=== PATIENT | male | born 1995 | race Two or more races ===

== ENCOUNTER 2017-07-06 13:23 | Emergency (ER) | payer MEDICAID ==
[~2017-07-06] VITALS: Ht 177.8 cm; Wt 76.7 kg
[2017-07-06 13:26] VITALS: BP 129/84
[2017-07-06] MEDS ORDERED: TOBREX3.5 GM OP (13:56)
--- NOTE | 2017-07-06 19:50 | Emergency Room Report ---
History of Present Illness General Chief Complaint: General Complaint Source: Patient Present Illness HPI To the patient is a 21-year-old male presenting for possible eyelid infection. He noticed that the left eyelid had redness and swelling approximately 1 month prior. He has been using warm compress which has not been helping. Pain is a 5 out of 10 dull ache and is worse with touch. He denies any discharge from the eye or crusting. He denies any changes in vision. He denies any other symptoms including fever Allergies: Coded Allergies: No Known Allergies (Unverified , 07/06/17) Patient History Past Medical History: see triage record Pertinent Family History: none Reviewed Nursing Documentation: PMH: Agreed; PSxH: Agreed Nursing Documentation-PMH Past Medical History: No Stated History Review of Systems All Other Systems: negative except mentioned in HPI Physical Exam Vital Signs Date Time Temp Pulse Resp B/P (MAP) Pulse Ox O2 Delivery O2 Flow Rate FiO2 07/06/17 13:26 98.0 74 18 129/84 99 Room Air 98.1 Sp02 EP Interpretation: reviewed, normal General Appearance: no apparent distress, alert, GCS 15, non-toxic Head: normocephalic, atraumatic Eyes: bilateral eye normal inspection, bilateral eye PERRL, bilateral eye EOMI , bilateral eye lid inflammation ENT: hearing grossly normal, normal pharynx, no angioedema, normal voice Neurologic: alert, oriented x3, responsive, motor strength/tone normal, sensory intact, speech normal Psychiatric: judgement/insight normal, memory normal, mood/affect normal, no suicidal/homicidal ideation Skin: normal color, no rash, warm/dry, well hydrated Lymphatic: no adenopathy Medical Decision Making PA Attestation Dr. Aguirre is my supervising physician. Patient management was discussed with my supervising physician Diagnostic Impression: Primary Impression: Hordeolum Qualified Codes: H00.019 - Hordeolum externum unspecified eye, unspecified eyelid ER Course To the patient is a 21-year-old male presenting for possible eyelid infection Differential diagnosis considered not limited to: Conjunctivitis, hordeolum, stye, among others PE: Afebrile. NAD HEENT exam reveals left upper eyelid localized erythema and edema. No discharge or crusting. PERRL. EOMI He is given a prescription for topical abx and will F/U with PMD. ER precautions are given Last Vital Signs Date Time Temp Pulse Resp B/P (MAP) Pulse Ox O2 Delivery O2 Flow Rate FiO2 07/06/17 14:07 98.3 72 16 124/69 97 Room Air Status: improved Disposition: HOME, SELF-CARE Condition: Improved Scripts Tobramycin (TOBREX) 3.5 Gm Oint...g. 0.5 INCH OP Q8HR, #3.5 GM Prov: ABRAM PHAN 07/06/17 Referrals: [facility],REFERRING (PCP) Patient Instructions: Ana Additional Instructions: I discussed my findings with the patient. All questions and concerns have been answered. Treatment and medication compliance have been addressed. I advised the patient that they need to follow up with PMD in 3-5 days. Return to ED if symptoms worsen, new symptoms arise, or if needed for any reason. Patient verbalized understanding of discharge instructions. ABRAM PHAN July 06, 2017 19:50
== END 2017-07-06 14:05 | disposition home or self-care (01) ==
LOC: EMR 14:00
DX: H00.016 Hordeolum externum left eye, unspecified eyelid (principal); H00.013 Hordeolum externum right eye, unspecified eyelid
CPT/HCPCS: 99283